=== PATIENT | female | born 1955 | race Caucasian/White ===

== ENCOUNTER 2025-04-22 14:53 | Inpatient (IN) | payer MEDICARE, SELFPAY ==
--- NOTE | ~2025-04-22 | CT_ITS ---
CLINICAL HISTORY: Abdominal pain constipation CT abdomen and pelvis without contrast Comparison: None Findings: No consolidation or effusion. Gallbladder is surgically absent. Bilateral renal vascular calcifications are present. 37 mm right adrenal nodule with noncontrast Hounsfield units of -15. Solid organs are otherwise within normal limits. No bowel obstruction, pneumoperitoneum, or pneumatosis.There is severe thickening of the cecum which demonstrates moderate surrounding fat stranding as well as a small amount of fluid versus induration laterally. The appendix is mildly enlarged measuring 7 mm diameter. Exophytic calcified 44 mm mass protrudes laterally from the uterine fundus. The bones are intact. L4 hemangioma. IMPRESSION: 1. Thickening of the cecum, consistent with infection, inflammation, or ischemia. Underlying inflammatory neoplasm can not be excluded. Further assessment with endoscopy is recommended. 2. Mild prominence of the appendix, consistent with normal variation with possible secondary inflammation. Close clinical follow up is recommended, with repeat imaging, if clinically warranted, to exclude developing appendicitis. 3. Right adrenal adenoma. 4. Uterine fibroid. This document has been electronically signed by: Itzel Strong MD on 04/22/2025 17:47:05
[2025-04-22 15:40] VITALS: BP 151/59; PULSE 61; RESP 18; TEMP 36.5; O2SAT 97; BMI 34.3
--- NOTE | 2025-04-22 15:47 | ED_ITS ---
HPI - General Adult General Chief complaint: Abdominal Pain Stated complaint: stomach pain Time Seen by Provider: 04/22/25 22:10 Source: patient Mode of arrival: ambulatory Limitations: no limitations History of Present Illness ED Provider: DR. Meza HPI narrative: 70-year-old female end-stage renal disease on hemodialysis M/W/F missed her last dialysis yesterday and scheduled to have dialysis tomorrow. Presented with 2 weeks of epigastric abdominal pain, pain has been constant, worse with food, daughter, no fever, no chills, no nausea, no vomiting. No dysuria, no frequency urination, no blood in the urine. Last bowel movement was early today and was normal, passing flatus normally, history of cholecystitis and C-sections. Related Data Home Medications ?Medication ?Instructions ?Recorded ?Confirmed amlodipine 10 mg tablet 10 mg PO DAILY 04/23/25 04/23/25 apixaban 5 mg tablet (Eliquis) 5 mg PO BID 04/23/25 04/23/25 calcium acetate(phosphat bind) 667 667 mg PO TIDWM 04/23/25 04/23/25 mg capsule nitroglycerin 0.4 mg sublingual 0.4 mg sublingual Q5M PRN Chest 04/23/25 04/23/25 tablet Pain trazodone 100 mg tablet 100 mg PO BEDTIME 04/23/25 04/23/25 Allergies Allergy/AdvReac Type Severity Reaction Status Date / Time erythromycin base Allergy Intermediate Itching Verified 04/22/25 15:40 Review of Systems 2 Review of Systems: All other systems are reviewed and are negative Constitutional: Reports as per HPI and Reports no additional constitutional complaints Eyes: Reports as per HPI and Reports no additional eye complaints Reports system reviewed and no additional complaints, except as documented Cardiovascular: Reports as per HPI and Reports no additional cardiovascular complaints Respiratory: Reports as per HPI and Reports no additional respiratory complaints Gastrointestinal: Reports as per HPI and Reports no additional gastrointestinal complaints Genitourinary: Reports no additional female genitourinary complaints Musculoskeletal: Reports no additional musculoskeletal complaints Skin/Breast: Reports system reviewed and no additional complaints, except as docu Psychiatric: Reports no additional psychiatric complaints Endocrine: Reports no additional endocrine complaints Hematologic/Lymphatic: Reports no additional hematologic/lymphatic complaints Allergic/Immunologic: Reports no additional allergic/immunologic complaints Reports system reviewed and no additional complaints, except as documented and Reports Abnormal speech present PMFSH Past Medical History Medical History (Updated 04/22/25 @ 23:54 by Nilam Hutchinson MD) ESRD on hemodialysis Mood disorder Hypertension Surgical History (Updated 04/23/25 @ 08:15 by Staci Chowdary PA-C) History of section Hx of cholecystectomy Social History Social History Household Members: Significant Other [facility] Do you presently have visiting nurse or other home services: Yes (astro technician services) Patient Tobacco Use Status: Never used Tobacco service: No Physical Exam ED Vital Signs: Vital Signs - 24 hr 04/22/25 15:40 Temperature 97.7 F Pulse Rate 61 Respiratory Rate 18 Blood Pressure 151/59 H Pulse Oximetry 97 Oxygen Delivery Method Room Air BMI result Body Mass Index 34.3 Vital signs have been reviewed and appear to be correct. Blood pressure elevated. Heart rate normal. Respiratory rate normal. Temperature normal. Oxygen saturation normal. Appearance: Alert. Oriented X3. No acute distress. Head: Normal external exam. Normocephalic. Atraumatic. No Tomlin signs noted. No raccoon eyes noted Eyes: PERRLA. EOMI. Conjunctiva and sclera normal. Eyelids normal. ENT: TM's Normal. Pharynx normal. Uvula midline. Moist mucous membranes. No trismus noted. No drooling noted. No muffled voice noted. Neck: Normal inspection. Neck supple. FROM. No adenopathy. Thyroid Normal. No meningeal signs. No neck mass noted. CVS: Normal heart rate and rhythm. Heart sound normal. No murmurs noted. Pulses normal throughout. Respiratory: No respiratory distress. Painless inspiration. Breath sounds normal. No wheezes/rales/rhonchi noted. Chest nontender. No accessory muscle usage noted or decreased air movement noted. Abdomen: Soft, epigastric/ right lower quadrant abdominal tenderness, Bowel sounds normal in all 4 quadrants. No distention noted. No organomegaly noted. No visible injury noted. Back: No CVA tenderness. Full range of motion noted. Skin: Skin warm and dry. Normal skin color. Normal skin turgor. No rashes/lesions/lacerations noted. Extremities: No lower extremity edema. Extremities exhibit normal range of motion. Extremities nontender. Neuro: Oriented X 3. Cranial nerve exam: II-XII are grossly intact No motor deficit. No sensory deficit. Reflexes normal. Course Course Course Narrative: RMSlime; 70-year-old female presents to ED for abdominal pain radiating to her back for 1-1/2 week with some nausea. Patient states constipated for many days. Patient did not meet so dialysis. Patient denies any chest pain or shortness of breath. Reevaluation(s) Reevaluation #1: 70-year-old female ESRD on HD came in with a week history of abdominal pain, physical exam is consistent with RLQ tenderness without rebound tenderness. Case was discussed with Ricarda CHOU from surgery who recommended to admit the patient to medical service for further evaluation. Patient will need inpatient GI/surgical consultation. Consider PPI for possible gastritis. Time: 23:10 Medications Administered Generic Name Dose Route Start Last Admin Trade Name Freq PRN Reason Stop Dose Admin Apixaban 5 mg 04/23/25 21:00 04/23/25 19:52 Apixaban 5 Mg Tablet PO 5 mg BID MILTON Administration Calcium Acetate 667 mg 04/23/25 12:00 04/23/25 17:14 Calcium Acetate 667 Mg Capsule PO 667 mg TIDWM MILTON Administration Hydromorphone HCl 0.5 mg 04/23/25 15:45 04/23/25 15:52 Hydromorphone Hcl 0.5 Mg/0.5 Ml Syringe IVPUSH 0.5 mg Q4H PRN Administration pain, severe Protocol Piperacillin Sod/Tazobactam 50 mls @ 100 mls/hr 04/23/25 09:00 04/23/25 17:47 Sod 2.25 gm/ Sodium Chloride IV Infused Q8H MILTON Infusion Acetaminophen 1,000 mg in 100 mls @ 400 mls/hr 04/23/25 14:45 04/23/25 19:53 Ofirmev IV Not Given Q6H MILTON Pantoprazole Sodium 40 mg 04/23/25 06:30 04/23/25 05:32 Pantoprazole Sodium 40 Mg/10 Ml Vial IVPUSH 40 mg DAILY@0630 MILTON Administration Sodium Chloride 3 ml 04/23/25 00:00 04/23/25 19:53 0.9 % Sodium Chloride Flush 3 Ml Syringe IVFLUSH 3 ml QSHIFT MILTON Administration Trazodone HCl 100 mg 04/23/25 21:00 04/23/25 19:52 Trazodone Hcl 100 Mg Tablet PO 100 mg BEDTIME MILTON Administration Discontinued Medications Generic Name Dose Route Start Last Admin Trade Name Freq PRN Reason Stop Dose Admin Al Hydroxide/Mg Hydroxide 30 ml 04/22/25 23:05 04/23/25 00:48 Magnesium Hydrox/Alum Hydrox 30 Ml Oral.Susp PO 04/22/25 23:06 30 ml ONCE ONE Administration Hydromorphone HCl 1 mg 04/23/25 01:40 04/23/25 02:02 Hydromorphone Hcl 1 Mg/Ml Syringe IVPUSH 04/23/25 01:41 1 mg ONCE ONE Administration Protocol Piperacillin Sod/Tazobactam 50 mls @ 100 mls/hr 04/22/25 23:19 04/23/25 01:28 Sod 3.375 gm/ Sodium Chloride IV 04/22/25 23:48 Infused ONCE ONE Infusion Piperacillin Sod/Tazobactam 100 mls @ 200 mls/hr 04/23/25 08:00 04/23/25 09:13 Sod 2.25 gm/ Sodium Chloride IV Not Given Q8H MILTON Morphine Sulfate 2 mg 04/22/25 23:05 04/23/25 00:48 Morphine Sulfate 2 Mg/Ml Cartridge IVPUSH 04/22/25 23:06 2 mg ONCE ONE Administration Protocol Morphine Sulfate 4 mg 04/22/25 23:57 04/23/25 05:31 Morphine Sulfate 4 Mg/Ml Cartridge IVPUSH 4 mg Q4H PRN Administration Pain, Severe (Pain Scale 7-10) Protocol Pantoprazole Sodium 40 mg 04/22/25 23:05 04/23/25 00:48 Pantoprazole Sodium 40 Mg/10 Ml Vial IVPUSH 04/22/25 23:06 40 mg ONCE ONE Administration Medical Decision Making Differential Diagnosis Differential Diagnoses: The differential diagnosis associated with the presentation includes (Gastritis, appendicitis, colitis, diverticulitis, constipation, ACS, volume overload, electrolyte derangement, severe anemia.) Admission/Observation Consideration of admission/observation: Escalation of care including admission/observation considered Consult Healthcare Provider Management of the patient was discussed with: Hospitalist (Dr. Hutchinson) and Film Cutter ( Ricarda CHOU) Lab Data MDM Lab Attestation statement: I reviewed the patient's lab results. 04/23/25 09:57 04/23/25 09:57 Labs: Lab Results 04/22/25 Range/Units 16:07 WBC 8.7 (4.8-10.8) X10*3/uL RBC 3.41 L (4.20-5.50) X10*6/uL Hgb 11.0 L (12.0-16.0) g/dl Hct 31.9 L (37.0-47.0) % MCV 93.5 (80.0-98.0) fL MCH 32.3 (27.0-33.0) pg MCHC 34.5 (31.0-35.0) g/dl RDW 12.7 (11.0-16.0) % Plt Count 252 (160-400) X10*3/uL MPV 8.4 L (9.4-12.3) fL Immature Gran % (Auto) 0.7 H (0.0-0.4) % Neut % (Auto) 76.2 H (45-73) % Lymph % (Auto) 14.7 L (20-40) % Gallia % (Auto) 4.8 (2-11) % Eos % (Auto) 3.0 (0-4) % Baso % (Auto) 0.6 (0-2) % Lymph # (Auto) 1.3 (1.2-4.9) X10*3/uL Gall[place] # (Auto) 0.4 (0.1-1.2) X10*3/uL Eos # (Auto) 0.3 (0.0-0.4) X10*3/uL Baso # (Auto) 0.1 (0.0-0.2) X10*3/uL Abs Immat Gran (auto) 0.06 H (0.00-0.03) X10*3/uL Absolute Neuts (auto) 6.6 (2.0-8.3) x10*3/uL Absolute Nucleated RBC 0.000 (0.0-0.012) X10*3/uL Nucleated RBC % (auto) 0.0 (0.0-0.2) /100WBC Sodium 131 L (135-145) mmol/L Potassium 5.0 (3.3-5.1) mmol/L Chloride 98 (96-108) mmol/L Carbon Dioxide 23 (22-29) mmol/L Anion Gap 15 (12-20) BUN 32 H (9-16) mg/dL Creatinine 5.10 H* (0.5-1.4) mg/dL Estim Creat Clear Calc 11.3 Estimated GFR 8 Random Glucose 192 H (60-115) mg/dL Calcium 9.4 (8.4-10.2) mg/dL Total Bilirubin 0.3 (0.0-1.0) mg/dL AST 21 (5-31) U/L ALT 16 (0-31) U/L Alkaline Phosphatase 78 (39-117) U/L Troponin I High Sens 7.2 (<3.5-17.0) ng/L Total Protein 7.5 (6.5-8.0) g/dL Albumin 4.2 (3.5-5.0) g/dL Independent Interpretation I performed an independent interpretation of an: CT Scan (Abdomen pelvis:1. Thickening of the cecum, consistent with infection, inflammation, or ischemia. Underlying inflammatory neoplasm can not be excluded. Further assessment with endoscopy is recommended. 2. Mild prominence of the appendix, consistent with normal variation with possible secondary inf) Radiology Impression Discussion of test interpretation with radiology: I have reviewed the radiologist's reading. Discharge Plan Discharge Clinical Impression: Abdominal pain, Acute cecitis Patient Disposition: Admitted As Inpatient Interventions: Admission Worksheet (ED) Last Done: 04/23/25 04:12 Discharge Date/Time: 04/23/25 06:42
--- NOTE | 2025-04-22 15:51 | ECG_ITS ---
Test Reason : abd pain Blood Pressure : */* mmHG Vent. Rate : 62 BPM Atrial Rate : 62 BPM P-R Int : 144 ms QRS Dur : 84 ms QT Int : 448 ms P-R-T Axes : 51 -11 71 degrees QTcB Int : 454 ms Normal sinus rhythm Cannot rule out Anterior infarct , age undetermined Abnormal ECG When compared with ECG of 27-Apr-2017 20:36, No significant change was found Referred By: Alexander Kendall Electronically Signed By: PETTY FRANCO MD
[2025-04-22 16:11] LABS: MANUAL DIFF FLAG NO
[2025-04-22 16:16] LABS: Basophils Absolute Auto 0.1 X10*3/uL (0.0-0.2); Basophils Percent Auto 0.6 % (0-2); Eosinophils Absolute Auto 0.3 X10*3/uL (0.0-0.4); Hematocrit 31.9 % (37.0-47.0); Imm Gran Abs Auto 0.06 X10*3/uL (0.00-0.03); Imm Gran Pct Auto 0.7 % (0.0-0.4); Lymphocytes Absolute Auto 1.3 X10*3/uL (1.2-4.9); Lymphocytes Percent Auto 14.7 % (20-40); Mean Corpuscular HGB Conc 34.5 g/dl (31.0-35.0); Mean Corpuscular Hemoglobin 32.3 pg (27.0-33.0); Mean Corpuscular Volume 93.5 fL (80.0-98.0); Mean Platelet Volume 8.4 fL (9.4-12.3); Monocytes Absolute Auto 0.4 X10*3/uL (0.1-1.2); Monocytes Percent Auto 4.8 % (2-11); Neutrophils Absolute Auto 6.6 x10*3/uL (2.0-8.3); Neutrophils Percent Auto 76.2 % (45-73); Platelet Count 252 X10*3/uL (160-400); Red Blood Count 3.41 X10*6/uL (4.20-5.50); Red Cell Distribution Width 12.7 % (11.0-16.0); White Blood Count 8.7 X10*3/uL (4.8-10.8)
[2025-04-22 16:33] LABS: Alanine Aminotransferase 16 U/L (0-31); Albumin Level 4.2 g/dL (3.5-5.0); Alkaline Phosphatase 78 U/L (39-117); Anion Gap 15 (12-20); Aspartate Amino Transferase 21 U/L (5-31); Bilirubin Total 0.3 mg/dL (0.0-1.0); Blood Urea Nitrogen 32 mg/dL (9-16); Calcium 9.4 mg/dL (8.4-10.2); Carbon Dioxide 23 mmol/L (22-29); Chloride 98 mmol/L (96-108); Creatinine Clr Calc Pharmacy 11.3; Estimated Glomerular Filt Rate 8; Glucose Random 192 mg/dL (60-115); Sodium 131 mmol/L (135-145); Total Protein 7.5 g/dL (6.5-8.0)
[2025-04-22 16:39] LABS: Troponin-I High Sensitivity 7.2 ng/L (<3.5-17.0)
--- OUTSIDE RECORDS SUMMARY | 2025-04-22 22:01 | XMS_ITS | Encounter Summary ---
Author Organization [facility] Address [address] [place] [address] Care Team Providers Care Size Maker Name Role Phone Hansel Ambriz MD Primary Care Provider [phone] Reason for Visit * Reason Onset Date Comments Abdominal Pain 04/22/2025 Unable to Eat 04/22/2025 Encounter Details Date Type Department Care Team (Late st Contact Info) Description 04/22/2025 Nurse Triage Adult Medicine [address] [id number] Damaris Valenzuela [place] Abdominal Pain; Unable to Eat Social History Tobacco Use Types Packs/Day Years Used Date Smoking Tobacco: Never Smokeless Tobacco: Never Alcohol Use Standard Drinks/Week Comments No 0 (1 standard drink = 0.6 oz pur e alcohol) Comments Unknown Sex and Gender Information Value Date Recorded Sex Assigned at Not on file Legal Sex Female 2:19 PM EST Gender Identity Not on file Sexual Orientation Not on file documented as of this encounter Progress Notes * Lorrie Escalante RN - 04/22/2025 2:07 PM EDT Reason for Disposition ? ? [1] SEVERE pain (e.g., excruciating) AND [2] present > 1 hour Answer Assessment - Initial Assessment Questions 1. LOCATION: Where does it hurt? Middle of her abdomen 2. RADIATION: Does the pain shoot anywhere else? (e.g., chest, back) Pain radiates to her back slightly 3. ONSET: When did the pain begin? (e.g., minutes, hours or days ago) 1-2 weeks ago 4. SUDDEN: Gradual or sudden onset? Sudden 5. PATTERN Does the pain come and go, or is it constant? - If it comes and goes: How long does it last? Do you have pain now? (Note: Comes and goes means the pain is intermittent. It goes away completely between bouts.) - If constant: Is it getting better, staying the same, or getting worse? (Note: Constant means the pain never goes away completely; most serious pain is constant and gets worse.) Constant 6. SEVERITY: How bad is the pain? (e.g., Scale 1-10; mild, moderate, or severe) - MILD (1-3): Doesn't interfere with normal activities, abdomen soft and not tender to touch. - MODERATE (4-7): Interferes with normal activities or awakens from sleep, abdomen tender to touch. - SEVERE (8-10): Excruciating pain, doubled over, unable to do any normal activities. She rates the pain as 10/10 and describes the pain as throbbing/aching 7. RECURRENT SYMPTOM: Have you ever had this type of stomach pain before? If Yes, ask: When was the last time? and What happened that time? No 8. CAUSE: What do you think is causing the stomach pain? She went to [facility] last week and was told it sounds like an ulcer 9. RELIEVING/AGGRAVATING FACTORS: What makes it better or worse? (e.g., antacids, bending or twisting motion, bowel movement) Nothing 10. OTHER SYMPTOMS: Do you have any other symptoms? (e.g., back pain, diarrhea, fever, urination pain, vomiting) Nausea. Inability to tolerate food or fluids. 11. : Is there any chance you are ? When was your last menstrual period? No. Pt is 70 Protocols used: Abdominal Pain - Female-A-AH * Lorrie Escalante RN - 04/22/2025 2:06 PM EDT Pt states she went to an [facility] last week and was diagnosed with an ulcer but was told there was not much they could do. She was instructed to go to the ER for further evaluation and treatment. She is in agreement with this plan. * Damaris Valenzuela MA - 04/22/2025 1:53 PM EDT Patient is returning a missed call * Lorrie Escalante RN - 04/22/2025 1:49 PM EDT I left pt a message to call the office at on her home number . Attemptedto call pt at other numbers listed to no avail. * Damaris Valenzuela MA - 04/22/2025 11:25 AM EDT Patient call requires triage: Symptoms patient is presenting: Stomach Pain and unable to eat. How long has patient had these symptoms?: about 1 week,just not getting any better at all. For ALL patients calling to schedule any appointment (routine, sick visit, follow up, consult, etc.) in the outpatient setting please ask the following questions: Do you have fever of higher than 101, sore throat with difficulty swallowing or severe shortness ofbreath? no If YES to any of these above symptoms, send a message to triage and do not book. Red dot. If no, an audio or video visit should be booked. Have you had close contact with someone with Coronavirus in the last 14 days? no Have you traveled abroad? no Have you traveled recently to another state outside of [place], [place], [place], [place], [place], [place]? no o If yes, did you quarantine for 14 days or have a negative covid test? no If yes to any of the above, patient is not to be scheduled in office until after 14 day quarantine or negative covid test. If pain or injury related was it due to an accident at work or from a motor vehicle accident? If yes, date of accident/Injury: No If yes, gather 3rd democrat insurance information Third Republican Information: not applicable PCP: Hansel Ambriz MD Payor: [facility] ADVANTAGE / Plan: [employer] / Product Type: *No Product type* / documented in this encounter Plan of Treatment Upcoming Encounters Date Type Department Care Team (Late st Contact Info) Description 05/04/2025 11:30 AM EDT Office Visit Adult Medicine [address] [phone] Hansel Ambriz MD [address] [place] [phone] documented as of this encounter Visit Diagnoses Not on filedocumented in this encounter Care Teams Size Maker Relationship Specialty Start Date End Date Hansel Ambriz MD [address] [place] [id number] PCP - General Internal Medicine 06/08/14 documented as of this encounter
--- NOTE | 2025-04-22 23:47 | P.HPHOSP_ITS ---
History of Present Illness Date of Service: 04/22/25 Chief Complaint: Abdominal pain This is a 70-year-old female with pertinent history of ESRD on dialysis M/W/F, hypertension, mood disorder who presents to the emergency department for evaluation of abdominal pain. Patient states his symptoms started 1-1/2 weeks ago. She has been having abdominal pain, right-sided which was initially intermittent but progressed to being constant. It is worse with p.o. intake. Patient has been unable to tolerate p.o. intake for the last 2 days due to discomfort. No relieving factors. No radiation. Patient denies fever, chills, chest pain, palpitations, nausea, vomiting, changes in urinary or bowel habits. In the emergency department, imaging with thickening of the cecum. General surgery was consulted requested admission to medicine team. Review of Systems 2 Constitutional: Constitutional: Reports fatigue, Reports malaise and Reports poor appetite Cardiovascular: Cardiovascular: Reports no additional cardiovascular complaints Respiratory: Respiratory: Reports no additional respiratory complaints Gastrointestinal: Gastrointestinal: Reports abdominal pain Genitourinary: Genitourinary: Reports no additional female genitourinary complaints Endocrine: Endocrine: Reports fatigue [facility] Medical History (Updated 04/22/25 @ 23:54 by Nilam Hutchinson MD) ESRD on hemodialysis Mood disorder Hypertension Pertinent family history: No family history of early CAD Social History Smoked in Last 30 Days: No Use of substances other than those prescribed or required for medical reasons: No Advance Directives: No Advance Directives Information Provided: Yes Do you have a plan to hurt others: No Plan Meds Allergies Allergy/AdvReac Type Severity Reaction Status Date / Time erythromycin base Allergy Intermediate Itching Verified 04/22/25 15:40 Active Medications: Current Medications Piperacillin Sod/Tazobactam (Sod 3.375 gm/ Sodium Chloride) 50 mls @ 100 mls/hr IV ONCE ONE Stop: 04/22/25 23:48 Physical Exam 2 Vital Signs and Narrative: Vital Signs: Last Vital Signs Temp 97.7 F 04/22/25 15:40 Pulse 61 04/22/25 15:40 Resp 18 04/22/25 15:40 BP 151/59 H 04/22/25 15:40 Pulse Ox 97 04/22/25 15:40 O2 Del Method Room Air 04/22/25 15:40 BMI result Body Mass Index 34.3 Middle-aged female lying in bed in no distress Neck supple, no JVD Regular rate and rhythm, S1-S2 heard Regular breath sounds bilaterally, no wheezing or crackles appreciated Abdomen with right-sided tenderness and mild guarding, no rigidity Patient is awake, alert and oriented to self, place, time and person ; no focal motor deficit Psych: Normal mood No pedal edema Results Labs 04/22/25 16:07 04/22/25 16:07 Labs: Laboratory Results - last 24 hr 04/22/25 16:07 MCV 93.5 MCH 32.3 MCHC 34.5 RDW 12.7 Plt Count 252 MPV 8.4 L Immature Gran % (Auto) 0.7 H Neut % (Auto) 76.2 H Lymph % (Auto) 14.7 L [place] % (Auto) 4.8 Eos % (Auto) 3.0 Baso % (Auto) 0.6 Lymph # (Auto) 1.3 [place] # (Auto) 0.4 Eos # (Auto) 0.3 Baso # (Auto) 0.1 Abs Immat Gran (auto) 0.06 H Absolute Neuts (auto) 6.6 Absolute Nucleated RBC 0.000 Nucleated RBC % (auto) 0.0 Anion Gap 15 Estim Creat Clear Calc 11.3 Estimated GFR 8 Random Glucose 192 H Calcium 9.4 Total Bilirubin 0.3 AST 21 ALT 16 Alkaline Phosphatase 78 Troponin I High Sens 7.2 Total Protein 7.5 Albumin 4.2 Assessment and Plan (1) Acute cecitis: Status: Acute (2) Abdominal pain: Status: Acute Plan This is a 70-year-old female with pertinent history of ESRD on dialysis M/W/F, hypertension, mood disorder who presents to the emergency department for evaluation of abdominal pain. #. Intractable abdominal pain with thickening of the cecum: Will admit patient with IV opioids p.r.n. for analgesia. Empiric IV antibiotics. Consulted General surgery and GI. Will keep patient NPO. #. ESRD on hemodialysis: Patient missed her last hemodialysis session. Consulting Nephrology #. Hypertension: Resume home antihypertensives once able to take p.o. Med rec pending DVT prophylaxis: Mechanical Full code Admit as inpatient and will require two night minimum hospital stay for management of intractable abdominal pain, IV antibiotics (as above), which is not possible in a lesser acute setting. Specialist consult pending Quality Stroke Does the patient have a stroke diagnosis?: No VTE Prior VTE?: No VTE Risk Level:: Medical - moderate - high VTE Device Contraindication: N/A - Device Ordered VTE Drug Contraindication: Treatment Not Indicated
[2025-04-23] VITALS: BP 129/60; PULSE 50; RESP 18; O2SAT 98
--- NOTE | 2025-04-23 00:43 | PC.NURSE ---
pt difficult stick multiple ultra sound attempts, Took over care from SHANNA Newell at 23:00
[2025-04-23] MEDS: Piperacillin Sodium/Tazobactam 3.375 GM in 0.9 % Sodium Chloride 50 ML IV (00:47)
[2025-04-23] MEDS: Pantoprazole Sodium 40 MG/10 ML VIAL IVPUSH ×2 (00:48→05:32)
[2025-04-23] MEDS: Morphine Sulfate 2 MG/ML CARTRIDGE IVPUSH (00:48)
[2025-04-23] MEDS: Magnesium Hydrox/Alum Hydrox 30 ML ORAL.SUSP PO (00:48)
[2025-04-23] MEDS: 0.9 % Sodium Chloride Flush 3 ML SYRINGE IVFLUSH ×4 (00:56→19:53)
[2025-04-23 01:57] VITALS: BP 143/64; PULSE 71; RESP 18; O2SAT 98
[2025-04-23] MEDS: HYDROmorphone HCl 1 MG/ML SYRINGE IVPUSH (02:02)
--- NOTE | 2025-04-23 02:12 | PC.NURSE ---
medicated per mar.
--- NOTE | 2025-04-23 03:21 | PC.NURSE ---
pt given water and pillow.
[2025-04-23 05:01] VITALS: BMI 35.5
[2025-04-23 05:24] VITALS: BP 132/60; PULSE 57; RESP 17; TEMP 36.2; O2SAT 96
[2025-04-23] MEDS: Morphine Sulfate 4 MG/ML CARTRIDGE IVPUSH (05:31)
[2025-04-23 07:42] VITALS: BP 138/65; PULSE 56; RESP 16; TEMP 36.3; O2SAT 96
--- NOTE | 2025-04-23 08:04 | P.CONGS_ITS ---
History of Present Illness Consult details Consult date: 04/23/25 Narrative: 70-year-old female with PMH significant for ESRD on dialysis M/W/F, hypertension, on eliquis who presented to the ED with complaints of RLQ abd pain. She reports the pain began two weeks ago. It was associated with nausea without vomiting. The pain is exacerbated by eating. She reports poor oral intake over the past few days. She is passing flatus and last BM was Sunday and was normal. Due to the persistence of pain she presented to the ED for evaluation. Work up in the ED included CBC, BMP, LFTs which was significant for sodium of 131 and Cr of 5.10. No leukocytosos. CT scan abd/pelvis was obtained which showed severe thickening of the cecum with moderate surrounding fat stranding as well as a small amount of fluid versus induration laterally, mildly enlarged appendix. She denies fevers, chills, diarrhea, change in bowel habits, melena, hematochezia. She denies prior episodes of similar pain. She reports having a colonoscopy two years ago at [facility] and reports it was normal. She feels better today with improvement in her pain. She feels hungry. 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) Patient Tobacco Use Status: Never used Tobacco Meds Allergies Allergy/AdvReac Type Severity Reaction Status Date / Time erythromycin base Allergy Intermediate Itching Verified 04/22/25 15:40 Active Medications: Current Medications Acetaminophen (Acetaminophen 325 Mg Tablet) 650 mg PO Q6H PRN PRN Reason: Pain, Mild 1-3,fever,headache Calcium Carbonate (Calcium Carbonate 750 Mg Tab.Chew) 750 mg PO Q4H PRN PRN Reason: Heartburn Piperacillin Sod/Tazobactam (Sod 2.25 gm/ Sodium Chloride) 100 mls @ 200 mls/hr IV Q8H [facility] Magnesium Hydroxide (Milk Of Magnesia 30 Ml Oral.Susp) 30 ml PO DAILY PRN PRN Reason: Constipation Melatonin (Melatonin 3 Mg Tablet) 6 mg PO BEDTIME PRN PRN Reason: Insomnia Morphine Sulfate (Morphine Sulfate 4 Mg/Ml Cartridge) 4 mg IVPUSH Q4H PRN; Protocol PRN Reason: Pain, Severe (Pain Scale 7-10) Last Admin: 04/23/25 05:31 Dose: 4 mg Ondansetron HCl (Ondansetron Hcl 4 Mg/2 Ml Vial) 4 mg IVPUSH Q8H PRN PRN Reason: Nausea and Vomiting Pantoprazole Sodium (Pantoprazole Sodium 40 Mg/10 Ml Vial) 40 mg IVPUSH DAILY@0630 [facility] Last Admin: 04/23/25 05:32 Dose: 40 mg Sodium Chloride (0.9 % Sodium Chloride Flush 3 Ml Syringe) 3 ml IVFLUSH QSHIFT [facility] Last Admin: 04/23/25 00:56 Dose: 3 ml Home Medications ?Medication ?Instructions ?Recorded ?Confirmed ?Last Taken ?Type amlodipine 10 mg tablet 10 mg PO DAILY 04/23/25 Unknown History apixaban 5 mg tablet (Eliquis) 5 mg PO BID 04/23/25 Unknown History tizanidine 2 mg tablet 2 mg PO BID 04/23/25 Unknown History torsemide 100 mg tablet 100 mg PO DAILY 04/23/25 Unknown History trazodone 100 mg tablet 100 mg PO BEDTIME 04/23/25 Unknown History Physical Exam 2 Vital Signs: Vital Signs: Last Vital Signs Temp 97.4 F 04/23/25 07:42 Pulse 56 04/23/25 07:42 Resp 16 04/23/25 07:42 BP 138/65 04/23/25 07:42 Pulse Ox 96 04/23/25 07:42 O2 Del Method Room Air 04/23/25 07:42 BMI result Body Mass Index 35.5 Const: General: comfortable, no acute distress and alert; No ill appearing Orientation/consciousness: patient oriented x3 Resp: Effort & Inspection: normal respiratory effort GI: Other: very corpulent and protuberant abdomen Palpation (GI): Soft to palpation, Tenderness to palpation present (GI) in the RLQ (moderate); Rovsing's sign negative, no guarding and not rigid P ercussion: Yes normal to percussion Skin: General skin exam: no rashes or lesions noted Neuro: General: patient oriented x3 and moves all extremities Results Labs 04/22/25 16:07 04/22/25 16:07 Labs: Abnormal lab results 04/22/25 Range/Units 16:07 RBC 3.41 L (4.20-5.50) X10*6/uL Hgb 11.0 L (12.0-16.0) g/dl Hct 31.9 L (37.0-47.0) % MPV 8.4 L (9.4-12.3) fL Immature Gran % (Auto) 0.7 H (0.0-0.4) % Neut % (Auto) 76.2 H (45-73) % Lymph % (Auto) 14.7 L (20-40) % Abs Immat Gran (auto) 0.06 H (0.00-0.03) X10*3/uL Sodium 131 L (135-145) mmol/L BUN 32 H (9-16) mg/dL Creatinine 5.10 H* (0.5-1.4) mg/dL Random Glucose 192 H (60-115) mg/dL Short CBC 04/22/25 Range/Units 16:07 WBC 8.7 (4.8-10.8) X10*3/uL Hgb 11.0 L (12.0-16.0) g/dl Hct 31.9 L (37.0-47.0) % Plt Count 252 (160-400) X10*3/uL BMP 04/22/25 16:07 Sodium 131 L Potassium 5.0 Chloride 98 Carbon Dioxide 23 BUN 32 H Creatinine 5.10 H* Calcium 9.4 Liver Function 04/22/25 Range/Units 16:07 Total Bilirubin 0.3 (0.0-1.0) mg/dL AST 21 (5-31) U/L ALT 16 (0-31) U/L Alkaline Phosphatase 78 (39-117) U/L Albumin 4.2 (3.5-5.0) g/dL All other labs normal. Imaging Abdomen CT scan report/results: report reviewed and image reviewed Assessment and Plan (1) Acute cecitis: Status: Acute Plan 70 year old female with PMH significant for ESRD on dialysis M/W/F, hypertension, on eliquis who presented to the ED with complaints of RLQ abd pain for 2 weeks found to have severe thickening of the cecum with moderate surrounding fat stranding as well as a small amount of fluid versus induration laterally. Appendix was thought to be mildly enlarged and this is likely secondary to the inflammatory changes of the cecum instead of acute appendicitis itself given the length of her illness. Her abdomen is relatively benign with moderate RLQ tenderness without peritoneal signs and she feels improved this morning. Recommend continuing supportive measures with IV abx, GI consult for possible colonoscopy. Can advance to clears. Procedures Date of Service Date of Service: 04/23/25
--- NOTE | 2025-04-23 08:30 | PHA.MEDREC ---
Addendum entered by Blanco Monterroso PharmD 04/23/25 09:32: reviewed Original Note: Pharmacy Consult ? Medication Reconciliation Pharmacy has completed the medication reconciliation. Spoke with pt and she confirmed her medications. Pt confirmed she was taking Tizanidine 2mg tabs Bid but ran out about 1 week ago and stated she went to refill it at the pharmacy and her Dr dc'd it and she was not aware of that. Pt confirmed she takes a Calcium tablet TIDWM but couldn't remember the dose or if it was Acetate or Citrate, pt did confirmed it was a blue capsule and she gets it filled through a [employer]; I found Calcium Acetate 667mg capsule in claims that is taken 1 TIDWM, spoke with pt again and she confirmed that med sounded correct.
[2025-04-23] MEDS: Piperacillin Sodium/Tazobactam 2.25 GM in 0.9 % Sodium Chloride 50 ML IV ×2 (09:18→17:15)
[2025-04-23 10:47] LABS: MANUAL DIFF FLAG NO
[2025-04-23 10:57] LABS: Basophils Percent Auto 0.7 % (0-2); Eosinophils Absolute Auto 0.2 X10*3/uL (0.0-0.4); Eosinophils Percent Auto 3.2 % (0-4); Hematocrit 30.2 % (37.0-47.0); Hemoglobin 10.2 g/dl (12.0-16.0); Imm Gran Abs Auto 0.03 X10*3/uL (0.00-0.03); Imm Gran Pct Auto 0.5 % (0.0-0.4); Lymphocytes Absolute Auto 1.2 X10*3/uL (1.2-4.9); Lymphocytes Percent Auto 19.9 % (20-40); Mean Corpuscular HGB Conc 33.8 g/dl (31.0-35.0); Mean Corpuscular Hemoglobin 32.2 pg (27.0-33.0); Mean Corpuscular Volume 95.3 fL (80.0-98.0); Mean Platelet Volume 8.7 fL (9.4-12.3); Monocytes Absolute Auto 0.3 X10*3/uL (0.1-1.2); Monocytes Percent Auto 4.9 % (2-11); Neutrophils Absolute Auto 4.2 x10*3/uL (2.0-8.3); Neutrophils Percent Auto 70.8 % (45-73); Platelet Count 248 X10*3/uL (160-400); Red Blood Count 3.17 X10*6/uL (4.20-5.50); White Blood Count 5.9 X10*3/uL (4.8-10.8)
[2025-04-23 11:04] LABS: Anion Gap 14 (12-20); Blood Urea Nitrogen 39 mg/dL (9-16); C Reactive Protein 2.54 mg/dL (< or = 0.50); Calcium 8.9 mg/dL (8.4-10.2); Carbon Dioxide 27 mmol/L (22-29); Chloride 100 mmol/L (96-108); Creatinine Clr Calc Pharmacy 10.2; Estimated Glomerular Filt Rate 7; Glucose Random 128 mg/dL (60-115); Potassium 4.6 mmol/L (3.3-5.1); Sodium 136 mmol/L (135-145)
--- NOTE | 2025-04-23 11:57 | P.PNIM_ITS ---
Subjective Subjective Date of Service: 04/23/25 Interval History: c/o RLQ pain, no N/V Review of Systems Review of Systems: Yes all other systems are reviewed and are negative Physical Exam 2 Vital Signs: Vital Signs: Last Vital Signs Temp 97.4 F 04/23/25 07:42 Pulse 56 04/23/25 07:42 Resp 16 04/23/25 07:42 BP 138/65 04/23/25 07:42 Pulse Ox 96 04/23/25 07:42 O2 Del Method Room Air 04/23/25 07:42 BMI result Body Mass Index 35.5 Gen: in no acute distress HEENT: sclera anicteric, moist mucus membranes Neck: supple Lungs: clear to auscultation bilaterally Heart: regular rate and rhythm, no murmurs Abd: soft, RLQ tender without rebound, non-distended Ext: no edema Skin: warm/well-perfused Neuro: alert and oriented x3, no focal findings Psych: appropriate affect Const: General: comfortable, no acute distress and alert; No ill appearing Orientation/consciousness: patient oriented x3 Resp: Effort & Inspection: normal respiratory effort GI: Other: very corpulent and protuberant abdomen Palpation (GI): Soft to palpation, Tenderness to palpation present (GI) in the RLQ (moderate); Rovsing's sign negative, no guarding and not rigid P ercussion: Yes normal to percussion Skin: General skin exam: no rashes or lesions noted Neuro: General: patient oriented x3 and moves all extremities Objective Data Active Medications Acetaminophen (Acetaminophen 325 Mg Tablet) 650 mg PO Q6H PRN PRN Reason: Pain, Mild 1-3,fever,headache Amlodipine Besylate (Amlodipine Besylate 10 Mg Tablet) 10 mg PO DAILY [facility]; Protocol Calcium Carbonate (Calcium Carbonate 750 Mg Tab.Chew) 750 mg PO Q4H PRN PRN Reason: Heartburn Piperacillin Sod/Tazobactam (Sod 2.25 gm/ Sodium Chloride) 50 mls @ 100 mls/hr IV Q8H [facility] Last Infusion: 04/23/25 10:02 Dose: Infused Documented By: DIAMANTE Magnesium Hydroxide (Milk Of Magnesia 30 Ml Oral.Susp) 30 ml PO DAILY PRN PRN Reason: Constipation Melatonin (Melatonin 3 Mg Tablet) 6 mg PO BEDTIME PRN PRN Reason: Insomnia Morphine Sulfate (Morphine Sulfate 4 Mg/Ml Cartridge) 4 mg IVPUSH Q4H PRN; Protocol PRN Reason: Pain, Severe (Pain Scale 7-10) Last Admin: 04/23/25 05:31 Dose: 4 mg Documented By: SHAHAB Ondansetron HCl (Ondansetron Hcl 4 Mg/2 Ml Vial) 4 mg IVPUSH Q8H PRN PRN Reason: Nausea and Vomiting Pantoprazole Sodium (Pantoprazole Sodium 40 Mg/10 Ml Vial) 40 mg IVPUSH DAILY@0630 [facility] Last Admin: 04/23/25 05:32 Dose: 40 mg Documented By: SHAHAB Sodium Chloride (0.9 % Sodium Chloride Flush 3 Ml Syringe) 3 ml IVFLUSH QSHIFT [facility] Last Admin: 04/23/25 09:18 Dose: 3 ml Documented By: GRAZIC Labs 04/23/25 09:57 04/23/25 09:57 Labs: Laboratory Results - last 24 hr 04/22/25 04/23/25 16:07 09:57 MCV 93.5 95.3 MCH 32.3 32.2 MCHC 34.5 33.8 RDW 12.7 13.0 Plt Count 252 248 MPV 8.4 L 8.7 L Immature Gran % (Auto) 0.7 H 0.5 H Neut % (Auto) 76.2 H 70.8 Lymph % (Auto) 14.7 L 19.9 L [place] % (Auto) 4.8 4.9 Eos % (Auto) 3.0 3.2 Baso % (Auto) 0.6 0.7 Lymph # (Auto) 1.3 1.2 [place] # (Auto) 0.4 0.3 Eos # (Auto) 0.3 0.2 Baso # (Auto) 0.1 0.0 Abs Immat Gran (auto) 0.06 H 0.03 Absolute Neuts (auto) 6.6 4.2 Absolute Nucleated RBC 0.000 0.000 Nucleated RBC % (auto) 0.0 0.0 Anion Gap 15 14 Estim Creat Clear Calc 11.3 10.2 Estimated GFR 8 7 Random Glucose 192 H 128 H Calcium 9.4 8.9 Total Bilirubin 0.3 AST 21 ALT 16 Alkaline Phosphatase 78 Troponin I High Sens 7.2 C-Reactive Protein 2.54 H Total Protein 7.5 Albumin 4.2 Assessment and Plan (1) Acute cecitis: Status: Acute Plan d2 for 70yo F with ESRD on HD MWF, HTN, mood disorder presenting with RLQ pain x1.5 wk, found to have acute cecitis acute cecitis - continue piperacillin-tazobactam, follow BCx, advance diet, Surgery consulted: changes in appendix [mild prominence] likely secondary to cecitis; abd benign; no operative intervention - GI consultation re possible colonosocopy HTN - amlodipine ESRD on MWF - Nephrology consult, missed HD yesterday - continue Ca acetate anticoagulated on apixaban - clarify indication mood disorder - trazodone VTE ppx - apixaban dispo - TBD In my clinical judgment, the patient requires continued inpatient hospitalization for the following reasons: IV ABX, specialist consultation, possible colonoscopy Total time managing care of this patient today: 45 minutes. Quality Stroke Does the patient have a stroke diagnosis?: No VTE Prior VTE?: No VTE Risk Level:: Medical - moderate - high VTE Device Contraindication: N/A - Device Ordered VTE Drug Contraindication: Treatment Not Indicated
[2025-04-23] MEDS: Calcium Acetate 667 MG CAPSULE PO ×2 (13:50→17:14)
--- NOTE | 2025-04-23 14:17 | MHC.CM.PN ---
IMM delivered. Patient lives in a home w/ her partner, Catarino. Reports she uses a w/c at all times and is able to self transfer. Independent w/ dressing/bathing. Has a PRESS CUTTER 18 hrs/wk that assists w/ shopping, cleaning, cooking, etc. DME: w/c, hospital bed, grab bars in bathroom, commode HD @ [facility] M/W/F, chair time 4pm, chair van transport Reports she has an HCP naming her daughter, Sonia Rodriguez, as HCA. Copy requested. PCP Hansel Ambriz MD DP: Goal is home, resume current services. Daughter will transport. CM will continue to follow.
[2025-04-23] MEDS: Acetaminophen 1,000 MG/100 ML PIGGYBACK 400 MG IV (15:02)
[2025-04-23 15:19] VITALS: BP 165/72; PULSE 59; RESP 18; TEMP 36.6; O2SAT 96
[2025-04-23] MEDS: HYDROmorphone HCl 0.5 MG/0.5 ML SYRINGE IVPUSH (15:52)
--- NOTE | 2025-04-23 17:30 | PM.EVENT ---
Event Note Date of Service: 04/23/25 Event Note: GI Consult-Full note dictated Imp: Two weeks of progressive abdominal pain and tenderness with apparent localized inflammation of the cecum of unclear etiology that has improved significantly after 24 hours of antibiotics. She has had no associated diarrhea, N/V, sx, travel, antibiotic use, nor any previous history of this. She does describe a negative colonoscopy about 2 years ago in [place]. Diff dx: Atypical appendicitis, although not thought to be the case by surgical consult; localized IBD such as Crohn's; NSAIDs-induced localized colitis from her intermittent use of NSAIDs; localized ischemia; she is somewhat immunocompromised due to her ESRD but I don't think this is typhlitis as one would see in truly immunocompromised neutropenuic patients; infectious. Rec: At this time I would continue the current antibiotics and advance diet as tolerated. I would not recommend a colonoscopy during this acute process due to increased risk of perforation. Hold all NSAIDs at home. Check stool specimens, including Yersinia, especially if she develops diarrhea. If she develops worsening symptoms and/or tenderness, I would then repeat a CT and contact surgery to reassess for possible need for surgery. I would recommend a colonoscopy in 2 to 3 months to reassess the cecum to definitively exclude a neoplasm as well. I told her to F/U with her PCP and then be referred over for that. D/W her in detail and she is comfortable with this plan. Thanks Time Spent With Patient Time: Total time managing care of this patient today ____ minutes.
[2025-04-23 19:28] VITALS: BP 159/69; PULSE 57; RESP 18; TEMP 36.7; O2SAT 94
[2025-04-23] MEDS: traZODone HCL 100 MG TABLET PO (19:52)
[2025-04-23] MEDS: Apixaban 5 MG TABLET PO (19:52)
[2025-04-24] MEDS: Piperacillin Sodium/Tazobactam 2.25 GM in 0.9 % Sodium Chloride 50 ML IV ×2 (00:23→09:26)
[2025-04-24 03:27] VITALS: BP 144/68; PULSE 58; RESP 18; TEMP 36.6; O2SAT 95
--- NOTE | 2025-04-24 03:44 | CONS_ITS ---
DATE OF SERVICE: 04/23/2025 REASON FOR CONSULTATION: Abdominal pain and abnormal CT scan of colon. HISTORY OF PRESENT ILLNESS: History has been obtained from the patient and the medical record. The patient is a 70-year-old female with multiple medical problems including previous coronary artery disease and end-stage renal failure on hemodialysis, who presents with about 2 weeks of progressive right-sided abdominal pain. Prior to that, she was not having any particular GI symptoms. She denies any chronic GI complaints such as abdominal pain, diarrhea, nausea, nor vomiting. Her pain started in the right lower quadrant and radiated to the mid abdomen. This progressed to where she finally came to the ER. She was quite tender, particularly in the right lower quadrant. She does not recall ever having had her appendix out, although did have an open cholecystectomy when she was 21 and therefore it is not sure if they might have removed the appendix at that time. Since being admitted to the hospital, she has definitely been feeling better after 24 hours of antibiotics. She reports that the pain is almost gone and the tenderness is much less. She tolerated liquids today. She has been afebrile since admission. Here in the hospital, she has had no diarrhea nor vomiting. She denies any urinary symptoms. She denies any preceding history of travel, ill contacts, or antibiotic use. She does take NSAIDs at least several times per week. She presently does not smoke and does not use any significant amounts of alcohol. She describes a negative colonoscopy about 2 years ago in [place]. She denies any known family history of colorectal cancer nor inflammatory bowel disease. Her medications at home included amlodipine, Eliquis, calcium, trazodone. Medications here in the hospital include acetaminophen, amlodipine, Eliquis, hydromorphone p.r.n., melatonin p.r.n., milk of magnesia p.r.n., sublingual nitroglycerin p.r.n., Zofran p.r.n., IV pantoprazole, IV Zosyn, and trazodone. PAST MEDICAL HISTORY: She has had several surgeries including right below-knee amputation, five-vessel coronary artery bypass, cholecystectomy, rotator cuff surgery, . Medical problems include coronary artery disease for which she has had a bypass, end-stage renal failure for which she is on dialysis, hypertension, mood disorder. She denies any history of actual RI, stroke, lung disease. SOCIAL HISTORY: She is engaged. She does not smoke nor drink presently. FAMILY HISTORY: Noncontributory. REVIEW OF SYSTEMS: CONSTITUTIONAL: She has been feeling typically at her baseline and fairly well up until about 2 weeks ago when her pain started. SKIN: No rash, no pruritus. CARDIAC: No chest pain. PULMONARY: No cough, hemoptysis. GI: As above. She has had some associated anorexia with her symptoms. She denies any chronic heartburn or dysphagia. Prior to becoming ill 2 weeks ago, her bowel movements have been fairly regular and without any sign of bleeding. URINARY: No dysuria, no hematuria. NEUROLOGIC: No headache or seizures. PHYSICAL EXAMINATION: GENERAL: The patient is a pleasant alert female in no distress. SKIN: Warm and dry. HEENT: Anicteric sclerae. Moist mucous membranes. NECK: Supple. CHEST: Clear. CARDIAC: Normal S1 and S2. ABDOMEN: Soft, nondistended, normal bowel sounds. She does have some focal tenderness to fairly deep palpation in the right lower quadrant. There is no palpable mass, rebound, or guarding. Bowel sounds are present. LABORATORIES: Her CT scan described changes of thickening and inflammation in the region of the cecum. There is some associated mild prominence of the appendix, but no definitive appendicitis. The remainder of the colon and small bowel are described as normal. Her initial white blood cell count was 8.7 and repeat was 5.9. Differential showed 76% neutrophils yesterday and 70% neutrophils today. Hemoglobin 11.0 yesterday and 10.2 today with a normal MCV. Platelets 248,000. Normal electrolytes. BUN 39, creatinine 5.8. C-reactive protein is 2.5. Normal liver profile. IMPRESSION: Given the patient's presentation this clearly appears to be an acute process causing a very localized inflammation in the colon involving the cecum and possibly the area of the appendix. She seems to have had a significant improvement after just 24 hours of antibiotics. Her abdominal exam is fairly benign other than some localized tenderness at this point. The exact etiology of the inflammation is not clear at this time. Although, surgical consultation does not think this is appendicitis, I think that is still a possibility and does need to be considered if in the event things were to worsen. Other possibilities, albeit less likely, would be a localized inflammatory bowel disease such as Crohn's disease, NSAID-induced localized colitis from the intermittent use of NSAIDs, and localized ischemia. An infectious component could be considered, but she has no diarrhea to support that. She is somewhat immunocompromised due to the underlying renal failure, but I do not think this represents typhlitis as one could see in truly immunocompromised neutropenic patients. Without any diarrhea I doubt this is related to any underlying Crohn's disease. At this point since she is getting better quickly on antibiotics I would simply continue that and observe her. I would advance her diet over the next day or 2 as tolerated. I would not recommend colonoscopy at this time during the acute phase due to the increased risk of perforation in this type of case with acute inflammation. I would hold all NSAIDs at home. I have ordered stool specimens to try to rule out an infectious process, particularly yersinia given the location of the inflammation. If she develops worsening symptoms and/or tenderness then she may need a repeat CT scan and further evaluation by surgery to be sure she does not need exploration to rule out appendicitis or other process. Another possibility could be ischemia, but that would be unusual to be so localized. At this point, she will hopefully continue to improve and her diet can continue to be advanced. If stable, I would then discharge her on a course of some oral antibiotics for about 7 to 10 days. I did advise her that even though she had a negative colonoscopy about 2 or 3 years ago by her report, I would recommend a repeat colonoscopy in the next 2 to 3 months to fully assess the cecum and be sure there is no underlying neoplasm that would be contributing to this, albeit again unlikely. I did tell her to follow up with her PCP in that regard and then be referred over to see us so we can set that up. This has all been discussed in detail with her and she is comfortable with the plan. MD BONI Fisher/MARISOL / [id number] MARILYNN
[2025-04-24] MEDS: Pantoprazole Sodium 40 MG/10 ML VIAL IVPUSH (05:33)
[2025-04-24 08:00] VITALS: PULSE 68; RESP 16; TEMP 36.3; O2SAT 95
[2025-04-24] MEDS: amLODIPine Besylate 10 MG TABLET PO (08:32)
[2025-04-24] MEDS: Calcium Acetate 667 MG CAPSULE PO ×3 (08:33→17:56)
[2025-04-24] MEDS: Apixaban 5 MG TABLET PO (08:33)
[2025-04-24] MEDS: 0.9 % Sodium Chloride Flush 3 ML SYRINGE IVFLUSH (08:34)
--- NOTE | 2025-04-24 10:28 | P.DS_ITS ---
DS: Providers Provider Date of Service: 04/24/25 Date of admission: 04/22/25 23:18 Date of discharge: 04/24/25 Primary care physician: Hansel Ambriz III, MD Consults: 04/22/25 23:47 Consult to Gastroenterology Routine Consulting Provider: Shan French Reason for consultation: cecal inflammation Consult to General Surgery Routine Consulting Provider: [facility] General Surgeons Reason for consultation: cecal inflammation 04/22/25 23:48 Consult to Nephrology Routine Consulting Provider: [facility] Reason for consultation: ESRD DS: Diagnosis Discharge Diagnosis (1) Acute cecitis: Status: Acute (2) ESRD on hemodialysis: Status: Acute DS: Summary Hospital Course Hospital Course: From the history and physical by the admitting hospitalist, Andreia Hutchinson MD, 04/22/25: This is a 70-year-old female with pertinent history of ESRD on dialysis M/W/F, hypertension, mood disorder who presents to the emergency department for evaluation of abdominal pain. Patient states his symptoms started 1-1/2 weeks ago. She has been having abdominal pain, right-sided which was initially intermittent but progressed to being constant. It is worse with p.o. intake. Patient has been unable to tolerate p.o. intake for the last 2 days due to discomfort. No relieving factors. No radiation. Patient denies fever, chills, chest pain, palpitations, nausea, vomiting, changes in urinary or bowel habits. In the emergency department, imaging with thickening of the cecum. General surgery was consulted requested admission to medicine team. 70yo F with ESRD on HD MWF, HTN, mood disorder presenting with RLQ pain x1.5 wk, found to have acute cecitis and admitted to the medical-surgical unit. She was treated with IV piperacillin-tazobactam and IV opioids and improved rapidly to the point where she tolerated a solid diet and had no pain. General Surgery and Gastroenterology were consulted. Prominence of the appendix on CT was thought secondary to the cecitis rather than a true appendicits and her abdominal remained extremely benign. However, she should have an outpatient colonoscopy in 2-3 months to evaluate for underlying neoplasm even though she had a normal colonoscopy 3 years ago. She can be referred to Dr Shan French by her primary care doctor. She was dialyzed on 04/24 and discharged home with renally-dosed amoxicillin-clavulanate. Time Attestation Discharge Coordination Time (in mins): 35 Quality: Safe Use of Opioids Does Pt have an Active Cancer Diagnosis on the Problem List?: No Quality: Stroke Does the patient have a stroke diagnosis?: No Physical Exam Vital Signs: Vital Signs: Last Vital Signs Temp 97.3 F 04/24/25 08:00 Pulse 68 04/24/25 08:00 Resp 16 04/24/25 08:00 BP 144/68 H 04/24/25 03:27 Pulse Ox 95 04/24/25 08:00 O2 Del Method Room Air 04/24/25 08:00 BMI result Body Mass Index 35.5 Gen: in no acute distress HEENT: sclera anicteric, moist mucus membranes Neck: supple Lungs: clear to auscultation bilaterally Heart: regular rate and rhythm, no murmurs Abd: soft, non-tender, non-distended Ext: no edema Skin: warm/well-perfused Neuro: alert and oriented x3, no focal findings Psych: appropriate affect DS: Data Data Completed and Pending Completed studies during hospitalization [Text1]: Laboratory Results WBC 5.9 X10*3/uL (4.8-10.8) 04/23/25 09:57 RBC 3.17 X10*6/uL (4.20-5.50) L 04/23/25 09:57 Hgb 10.2 g/dl (12.0-16.0) L 04/23/25 09:57 Hct 30.2 % (37.0-47.0) L 04/23/25 09:57 MCV 95.3 fL (80.0-98.0) 04/23/25 09:57 MCH 32.2 pg (27.0-33.0) 04/23/25 09:57 MCHC 33.8 g/dl (31.0-35.0) 04/23/25 09:57 RDW 13.0 % (11.0-16.0) 04/23/25 09:57 Plt Count 248 X10*3/uL (160-400) 04/23/25 09:57 MPV 8.7 fL (9.4-12.3) L 04/23/25 09:57 Immature Gran % (Auto) 0.5 % (0.0-0.4) H 04/23/25 09:57 Neut % (Auto) 70.8 % (45-73) 04/23/25 09:57 Lymph % (Auto) 19.9 % (20-40) L 04/23/25 09:57 [place] % (Auto) 4.9 % (2-11) 04/23/25 09:57 Eos % (Auto) 3.2 % (0-4) 04/23/25 09:57 Baso % (Auto) 0.7 % (0-2) 04/23/25 09:57 Lymph # (Auto) 1.2 X10*3/uL (1.2-4.9) 04/23/25 09:57 [place] # (Auto) 0.3 X10*3/uL (0.1-1.2) 04/23/25 09:57 Eos # (Auto) 0.2 X10*3/uL (0.0-0.4) 04/23/25 09:57 Baso # (Auto) 0.0 X10*3/uL (0.0-0.2) 04/23/25 09:57 Abs Immat Gran (auto) 0.03 X10*3/uL (0.00-0.03) 04/23/25 09:57 Absolute Neuts (auto) 4.2 x10*3/uL (2.0-8.3) 04/23/25 09:57 Absolute Nucleated RBC 0.000 X10*3/uL (0.0-0.012) 04/23/25 09:57 Nucleated RBC % (auto) 0.0 /100WBC (0.0-0.2) 04/23/25 09:57 Sodium 136 mmol/L (135-145) 04/23/25 09:57 Potassium 4.6 mmol/L (3.3-5.1) 04/23/25 09:57 Chloride 100 mmol/L (96-108) 04/23/25 09:57 Carbon Dioxide 27 mmol/L (22-29) 04/23/25 09:57 Anion Gap 14 (12-20) 04/23/25 09:57 BUN 39 mg/dL (9-16) H 04/23/25 09:57 Creatinine 5.76 mg/dL (0.5-1.4) H* 04/23/25 09:57 Estim Creat Clear Calc 10.2 04/23/25 09:57 Estimated GFR 7 04/23/25 09:57 Random Glucose 128 mg/dL (60-115) H 04/23/25 09:57 Calcium 8.9 mg/dL (8.4-10.2) 04/23/25 09:57 Total Bilirubin 0.3 mg/dL (0.0-1.0) 04/22/25 16:07 AST 21 U/L (5-31) 04/22/25 16:07 ALT 16 U/L (0-31) 04/22/25 16:07 Alkaline Phosphatase 78 U/L (39-117) 04/22/25 16:07 Troponin I High Sens 7.2 ng/L (<3.5-17.0) 04/22/25 16:07 C-Reactive Protein 2.54 mg/dL (< or = 0.50) H 04/23/25 09:57 Total Protein 7.5 g/dL (6.5-8.0) 04/22/25 16:07 Albumin 4.2 g/dL (3.5-5.0) 04/22/25 16:07 Discharge Plan Discharge Anticipated Discharge Date/Time: 04/24/25 16:25 Patient Disposition: Home, Self-Care Discharge Diagnosis: acute cecitis Referrals: Hansel Ambriz III, MD [Primary Care Provider] - 1 Week Shan French MD [Physician] - 2 Weeks Discharge Medications: New amoxicillin-pot clavulanate 500-125 mg Tablet 1 tab PO Q12H Qty: 12 0RF Continued trazodone 100 mg tablet 100 mg PO BEDTIME amlodipine 10 mg tablet 10 mg PO DAILY Eliquis 5 mg tablet 5 mg PO BID nitroglycerin 0.4 mg tablet, sublingual 0.4 mg sublingual Q5M PRN (Reason: Chest Pain) calcium acetate(phosphat bind) 667 mg capsule 667 mg PO TIDWM Discharge Orders: Discharge Order (Routine); Ordered 04/24/25 Ordered By: Gosia Barragan Diet: Advance to usual diet Activity on Discharge: As tolerated Stand Alone Forms: Patient Portal Discharge page Print Language: Russian Care Plan Goals: recovery from abdominal infection Health Concerns: acute cecitis Plan of Treatment: amoxicillin-clavulanate twice daily for 6 days follow up with Dr French in 2-3 months for colonoscopy Please follow up with your primary care doctor within 1 week. Return to the hospital if you experience recurrent or worsening symptoms. Assessment: See Discharge Summary.
--- NOTE | 2025-04-24 10:59 | PM.PNGS ---
Subjective Subjective Date of Service: 04/24/25 Interval history: pateint doing well, no longer having pain. Tolerating diet. Denies nausea/vomiting Physical Exam Vital Signs: Vital Signs: Last Vital Signs Temp 97.3 F 04/24/25 08:00 Pulse 68 04/24/25 08:00 Resp 16 04/24/25 08:00 BP 144/68 H 04/24/25 03:27 Pulse Ox 95 04/24/25 08:00 O2 Del Method Room Air 04/24/25 08:00 BMI result Body Mass Index 35.5 Const: General: comfortable and no acute distress Resp: Effort & Inspection: normal respiratory effort and able to speak in complete sentences GI: Inspection: No distended Palpation (GI): Soft to palpation, not firm, nontender, no guarding and not rigid Objective Data Active Medications Acetaminophen (Acetaminophen 325 Mg Tablet) 650 mg PO Q6H PRN PRN Reason: Pain, Mild 1-3,fever,headache Amlodipine Besylate (Amlodipine Besylate 10 Mg Tablet) 10 mg PO DAILY [facility]; Protocol Last Admin: 04/24/25 08:32 Dose: 10 mg Documented By: DIAMANTE Amoxicillin/Clavulanate Potassium (Amoxicillin/Potassium Clav 500 Mg Tablet) 500 mg PO Q12H [facility] Apixaban (Apixaban 5 Mg Tablet) 5 mg PO BID [facility] Last Admin: 04/24/25 08:33 Dose: 5 mg Documented By: DIAMANTE Calcium Acetate (Calcium Acetate 667 Mg Capsule) 667 mg PO TIDWM [facility] Last Admin: 04/24/25 08:33 Dose: 667 mg Documented By: DIAMANTE Calcium Carbonate (Calcium Carbonate 750 Mg Tab.Chew) 750 mg PO Q4H PRN PRN Reason: Heartburn Diphenhydramine HCl (Diphenhydramine Hcl 50 Mg/Ml Vial) 25 mg IVPUSH Q4H PRN PRN Reason: itching Hydromorphone HCl (Hydromorphone Hcl 0.5 Mg/0.5 Ml Syringe) 0.5 mg IVPUSH Q4H PRN; Protocol PRN Reason: pain, severe Last Admin: 04/23/25 15:52 Dose: 0.5 mg Documented By: DIAMANTE Acetaminophen (Ofirmev) 1,000 mg in 100 mls @ 400 mls/hr IV Q6H [facility] Last Admin: 04/24/25 08:33 Dose: Not Given Documented By: DIAMANTE Non-Admin Reason: Patient Refused Magnesium Hydroxide (Milk Of Magnesia 30 Ml Oral.Susp) 30 ml PO DAILY PRN PRN Reason: Constipation Melatonin (Melatonin 3 Mg Tablet) 6 mg PO BEDTIME PRN PRN Reason: Insomnia Nitroglycerin (Nitroglycerin 0.4 Mg Tab.Subl) 0.4 mg SUBLINGUAL Q5M PRN PRN Reason: Chest Pain Ondansetron HCl (Ondansetron Hcl 4 Mg/2 Ml Vial) 4 mg IVPUSH Q8H PRN PRN Reason: Nausea and Vomiting Pantoprazole Sodium (Pantoprazole Sodium 40 Mg/10 Ml Vial) 40 mg IVPUSH DAILY@0630 [facility] Last Admin: 04/24/25 05:33 Dose: 40 mg Documented By: ANITA Sodium Chloride (0.9 % Sodium Chloride Flush 3 Ml Syringe) 3 ml IVFLUSH QSHIFT [facility] Last Admin: 04/24/25 08:34 Dose: 3 ml Documented By: DIAMANTE Trazodone HCl (Trazodone Hcl 100 Mg Tablet) 100 mg PO BEDTIME [facility] Last Admin: 04/23/25 19:52 Dose: 100 mg Documented By: ANITA Labs 04/23/25 09:57 04/23/25 09:57 Labs: Laboratory Results - last 24 hr 04/23/25 09:57 Anion Gap 14 Estim Creat Clear Calc 10.2 Estimated GFR 7 Random Glucose 128 H Calcium 8.9 C-Reactive Protein 2.54 H Procedures Date of Service Date of Service: 04/24/25 Progress Note: A&P Assessment and plan (1) Abdominal pain: Status: Acute Plan 70 year old female with PMH significant for ESRD on dialysis M/W/F, hypertension, on eliquis who presented to the ED with complaints of RLQ abd pain for 2 weeks found to have severe thickening of the cecum with moderate surrounding fat stranding as well as a small amount of fluid versus induration laterally. GI consult appreciated,per GI no recommendation for colonoscopy during this admission, will plan for colonoscopy in a few months. Plan to continue ABX and advance diet as tolerated. patient is tolerating diet without reproduction of symptoms, patient feels okay to go home. No indication for surgical intervention. Patient planning for discharge this afternoon. Time Spent With Patient Time: Total time managing care of this patient today ____ minutes. Quality Stroke Does the patient have a stroke diagnosis?: No VTE Prior VTE?: No VTE Risk Level:: Medical - moderate - high VTE Device Contraindication: N/A - Device Ordered VTE Drug Contraindication: Treatment Not Indicated
--- NOTE | 2025-04-24 11:10 | MHC.CM.PN ---
Per MD rounds, likely dc after HD this afternoon. Will resume [employer] services and HD @ [facility]. Spoke w/ charge nurse, Chiquita, at [facility], who is aware patient will resume w/ them on Sunday. Daughter will transport.
[2025-04-24] MEDS: Amoxicillin/Potassium Clav 500 MG TABLET PO (11:53)
--- NOTE | 2025-04-24 16:00 | P.CONNP_ITS ---
History of Present Illness Reason for Consult Consult date: 04/24/25 Reason for consult: ESRD Chief Complaint Chief complaint: abd pain History of Present Illness Narrative: [facility] consulted for Dialysis 70 y/o F adm with abd pain and responding to Abx PMH as noted Review of Systems Review of Systems All other systems are reviewed and are negative Constitutional: Reports as per HPI and Reports no additional constitutional complaints Eyes: Reports as per HPI and Reports no additional eye complaints Reports system reviewed and no additional complaints, except as documented Cardiovascular: Reports as per HPI and Reports no additional cardiovascular complaints Respiratory: Reports as per HPI and Reports no additional respiratory complaints Gastrointestinal: Reports as per HPI and Reports no additional gastrointestinal complaints Genitourinary: Reports no additional female genitourinary complaints Musculoskeletal: Reports no additional musculoskeletal complaints Skin/Breast: Reports system reviewed and no additional complaints, except as docu Psychiatric: Reports no additional psychiatric complaints Endocrine: Reports no additional endocrine complaints Hematologic/Lymphatic: Reports no additional hematologic/lymphatic complaints Allergic/Immunologic: Reports no additional allergic/immunologic complaints Reports system reviewed and no additional complaints, except as documented and Reports Abnormal speech present Yes all other systems are reviewed and are negative Constitutional: Reports fatigue, Reports malaise and Reports poor appetite Cardiovascular: Reports no additional cardiovascular complaints Respiratory: Reports no additional respiratory complaints Gastrointestinal: Reports abdominal pain Endocrine: Reports fatigue PMFSH Past Medical History Medical History (Updated 04/22/25 @ 23:54 by Nilam Hutchinson MD) ESRD on hemodialysis Mood disorder Hypertension Family History Pertinent family history: No family history of early CAD Surgical History Surgical History (Updated 04/23/25 @ 08:15 by Staci Chowdary PA-C) History of section Hx of cholecystectomy Social History Social History Household Members: Significant Other Housing: Condominium Do you presently have visiting nurse or other home services: Yes ([employer]) Patient Tobacco Use Status: Never used Tobacco service: No Meds Allergies Allergy/AdvReac Type Severity Reaction Status Date / Time erythromycin base Allergy Intermediate Itching Verified 04/22/25 15:40 Active Medications: Current Medications Acetaminophen (Acetaminophen 325 Mg Tablet) 650 mg PO Q6H PRN PRN Reason: Pain, Mild 1-3,fever,headache Amlodipine Besylate (Amlodipine Besylate 10 Mg Tablet) 10 mg PO DAILY [facility]; Protocol Last Admin: 04/24/25 08:32 Dose: 10 mg Amoxicillin/Clavulanate Potassium (Amoxicillin/Potassium Clav 500 Mg Tablet) 500 mg PO Q12H [facility] Last Admin: 04/24/25 11:53 Dose: 500 mg Apixaban (Apixaban 5 Mg Tablet) 5 mg PO BID [facility] Last Admin: 04/24/25 08:33 Dose: 5 mg Calcium Acetate (Calcium Acetate 667 Mg Capsule) 667 mg PO TIDWM [facility] Last Admin: 04/24/25 11:53 Dose: 667 mg Calcium Carbonate (Calcium Carbonate 750 Mg Tab.Chew) 750 mg PO Q4H PRN PRN Reason: Heartburn Diphenhydramine HCl (Diphenhydramine Hcl 50 Mg/Ml Vial) 25 mg IVPUSH Q4H PRN PRN Reason: itching Hydromorphone HCl (Hydromorphone Hcl 0.5 Mg/0.5 Ml Syringe) 0.5 mg IVPUSH Q4H PRN; Protocol PRN Reason: pain, severe Last Admin: 04/23/25 15:52 Dose: 0.5 mg Acetaminophen (Ofirmev) 1,000 mg in 100 mls @ 400 mls/hr IV Q6H [facility] Last Admin: 04/24/25 14:46 Dose: Not Given Magnesium Hydroxide (Milk Of Magnesia 30 Ml Oral.Susp) 30 ml PO DAILY PRN PRN Reason: Constipation Melatonin (Melatonin 3 Mg Tablet) 6 mg PO BEDTIME PRN PRN Reason: Insomnia Nitroglycerin (Nitroglycerin 0.4 Mg Tab.Subl) 0.4 mg SUBLINGUAL Q5M PRN PRN Reason: Chest Pain Ondansetron HCl (Ondansetron Hcl 4 Mg/2 Ml Vial) 4 mg IVPUSH Q8H PRN PRN Reason: Nausea and Vomiting Pantoprazole Sodium (Pantoprazole Sodium 40 Mg/10 Ml Vial) 40 mg IVPUSH DAILY@0630 [facility] Last Admin: 04/24/25 05:33 Dose: 40 mg Sodium Chloride (0.9 % Sodium Chloride Flush 3 Ml Syringe) 3 ml IVFLUSH QSHIFT [facility] Last Admin: 04/24/25 08:34 Dose: 3 ml Trazodone HCl (Trazodone Hcl 100 Mg Tablet) 100 mg PO BEDTIME [facility] Last Admin: 04/23/25 19:52 Dose: 100 mg Home Medications ?Medication ?Instructions ?Recorded ?Confirmed ?Last Taken ?Type amlodipine 10 mg tablet 10 mg PO DAILY 04/23/25 04/23/25 04/21/25 History apixaban 5 mg tablet (Eliquis) 5 mg PO BID 04/23/25 04/23/25 04/21/25 History calcium acetate(phosphat bind) 667 667 mg PO TIDWM 04/23/25 04/23/25 04/21/25 History mg capsule nitroglycerin 0.4 mg sublingual 0.4 mg sublingual Q5M PRN Chest 04/23/25 04/23/25 Unknown History tablet Pain trazodone 100 mg tablet 100 mg PO BEDTIME 04/23/25 04/23/25 04/21/25 History Physical Exam Vital Signs: Last Vital Signs Temp 97.3 F 04/24/25 08:00 Pulse 68 04/24/25 08:00 Resp 16 04/24/25 08:00 BP 144/68 H 04/24/25 03:27 Pulse Ox 95 04/24/25 08:00 O2 Del Method Room Air 04/24/25 08:00 BMI result Body Mass Index 35.5 Const General: comfortable, no acute distress and alert; No ill appearing Orientation/consciousness: patient oriented x3 Resp Effort & Inspection: normal respiratory effort and able to speak in complete sentences GI Other: very corpulent and protuberant abdomen Inspection: No distended Palpation (GI): Soft to palpation, not firm, nontender, no guarding and not rigid Percussion: Yes normal to percussion Skin General skin exam: no rashes or lesions noted Neuro General: patient oriented x3 and moves all extremities Results Lab Results 04/23/25 09:57 04/23/25 09:57 Lab results: Chemistry 04/22/25 04/23/25 16:07 09:57 Sodium 131 L 136 Potassium 5.0 4.6 Carbon Dioxide 23 27 BUN 32 H 39 H Creatinine 5.10 H* 5.76 H* Calcium 9.4 8.9 Hematology 04/22/25 04/23/25 16:07 09:57 WBC 8.7 5.9 Hgb 11.0 L 10.2 L Plt Count 252 248 Assessment and Plan (1) Acute cecitis: Status: Acute (2) ESRD on hemodialysis: Status: Acute Plan ESRD mwf [facility] HD today Abx as noted Cont usu meds Procedures Date of Service Date of Service: 04/24/25
[2025-04-24 17:14] VITALS: BP 161/70; PULSE 66; RESP 18; TEMP 36.6; O2SAT 98
--- NOTE | 2025-04-24 18:16 | PC.NURSE ---
Pt sig other called and VM Left to come hand picker patient from Hospital r/t D/C.
== END 2025-04-24 19:24 | disposition home or self-care (01) | DRG 391 ==
LOC: HO.ED 23:22 → HO.EDOVER 23:54 → HO.S3 04-23 03:32
PROVIDERS: Physician Assistant; Admitting Provider Student in an Organized Health Care Education/Training Program; Emergency Provider Emergency Medicine; PCP Internal Medicine; Visit Provider Family Medicine
DX: K52.9 Noninfective gastroenteritis and colitis, unspecified (principal); N18.6 End stage renal disease; I12.0 Hypertensive chronic kidney disease with stage 5 chronic kidney disease or end stage renal disease; F39 Unspecified mood [affective] disorder; Z99.2 Dependence on renal dialysis; Z91.158 Patient's noncompliance with renal dialysis for other reason; Z79.01 Long term (current) use of anticoagulants; Z79.899 Other long term (current) drug therapy
CPT/HCPCS: 36415; 74176; 80048; 80053; 84484; 85025; 86140; 90999; 93005; 99285; J0131; J1171; J2270; J2470; J2543

== ENCOUNTER → 2025-04-22 15:51 | Outpatient (BNV) | payer MEDICARE, SELFPAY | PROVIDERS: Admitting Provider Student in an Organized Health Care Education/Training Program; Emergency Provider Emergency Medicine; PCP Internal Medicine; Visit Provider Internal Medicine Cardiovascular Disease | DX: R94.31 Abnormal electrocardiogram [ECG] [EKG] (principal); R10.9 Unspecified abdominal pain | CPT/HCPCS: 93010 ==

== ENCOUNTER → 2025-04-22 15:51 | Outpatient (BNV) | payer MEDICARE, MEDICAID, SELFPAY | PROVIDERS: PCP Internal Medicine; Visit Provider Radiology Diagnostic Radiology | DX: K63.89 Other specified diseases of intestine (principal); D35.01 Benign neoplasm of right adrenal gland; D25.9 Leiomyoma of uterus, unspecified | CPT/HCPCS: 74176 ==

== ENCOUNTER → 2025-04-22 23:18 | Outpatient (BNV) | payer OTHER, MEDICARE, SELFPAY | PROVIDERS: Admitting Provider Student in an Organized Health Care Education/Training Program; Emergency Provider Emergency Medicine; PCP Internal Medicine; Visit Provider Student in an Organized Health Care Education/Training Program | DX: K52.9 Noninfective gastroenteritis and colitis, unspecified (principal); N18.6 End stage renal disease; Z99.2 Dependence on renal dialysis | CPT/HCPCS: 99222; 99232; 99239 ==

== ENCOUNTER → 2025-04-22 23:18 | Outpatient (BNV) | payer MEDICARE, SELFPAY | PROVIDERS: Admitting Provider Student in an Organized Health Care Education/Training Program; Emergency Provider Emergency Medicine; PCP Internal Medicine; Visit Provider Physician Assistant Surgical | DX: K52.9 Noninfective gastroenteritis and colitis, unspecified (principal) | CPT/HCPCS: 99222 ==